=== PATIENT | female | born 1955 | race Caucasian/White ===

== ENCOUNTER 2017-04-28 20:54 | Emergency (ER) | payer OTHER ==
[2017-04-28 21:03] VITALS: BP 155/96
[2017-04-28] MEDS ORDERED: PRAMIPEXOLE DI-HCL 0.5 MG TABLET PO ONE (21:42)
--- NOTE | 2017-04-28 21:44 | ER Document Report ---
ED Extremity Problem, Lower - General Chief Complaint: Leg Pain Stated Complaint: LEG PAIN Time Seen by Provider: 04/28/17 21:42 Mode of Arrival: Ambulatory Information source: Patient TRAVEL OUTSIDE OF THE [place] IN LAST 30 DAYS: No - HPI Patient complains to provider of: Pain Location: Leg Occurred: This afternoon Onset/Duration: Gradual Quality of pain: Achy Severity: Moderate Pain Level: 3 Recent injury: No Exacerbated by: Nothing Relieved by: Nothing Notes: Patient is a 61-year-old female with a history of restless leg syndrome who is visiting from [place] for the weekend, she unfortunately forgot to bring her Mirapex with her which usually keeps her restless leg syndrome under control, she will be here until Monday and is requesting enough medication to last her until then, she denies any injury or trauma, no fevers, no calf cramping or tenderness, no chest pain or shortness of breath, symptoms are typical of her restless leg syndrome - Related Data Allergies/Adverse Reactions: No Known Allergies Allergy (Unverified 04/28/17 21:46) Past Medical History - General Information source: Patient - Social History Smoking Status: Unknown if Ever Smoked Family History: Reviewed & Not Pertinent Review of Systems - Review of Systems Constitutional: No symptoms reported EENT: No symptoms reported Cardiovascular: No symptoms reported Respiratory: No symptoms reported Gastrointestinal: No symptoms reported Genitourinary: No symptoms reported Female Genitourinary: No symptoms reported Musculoskeletal: See HPI Skin: No symptoms reported Hematologic/Lymphatic: No symptoms reported Neurological/Psychological: No symptoms reported -: Yes All other systems reviewed and negative Physical Exam - Vital signs Vitals: Temp Pulse Resp BP Pulse Ox 98.5 F 86 16 155/96 H 97 04/28/17 21:00 04/28/17 21:00 04/28/17 21:00 04/28/17 21:00 04/28/17 21:00 - Notes Notes: - General General appearance: Appears well, Alert In distress: None - HEENT Head: Normocephalic, Atraumatic Eyes: Normal Conjunctiva: Normal Extraocular movements intact: Yes Eyelashes: Normal Pupils: PERRL - Respiratory Respiratory status: No respiratory distress - Cardiovascular Rhythm: Regular - Abdominal Inspection: Normal - Back Back: Normal - Extremities General upper extremity: Normal inspection General lower extremity: Normal inspection - Neurological Neuro grossly intact: Yes Orientation: AAOx4 Sean Coma Scale Eye Opening: Spontaneous Sean Coma Scale Verbal: Oriented Sean Coma Scale Motor: Obeys Commands [place] Coma Scale Total: 15 - Psychological Associated symptoms: Normal affect, Normal mood - Skin Skin Temperature: Warm Skin Moisture: Dry Skin Color: Normal Course - Re-evaluation Re-evalutation: 04/28/17 22:06 Patient was given a prescription for 9 Mirapex tablets for use over the weekend , she will be returning to [place] on Monday, she was advised to follow-up with her provider upon return for any additional concerns, patient acknowledges understanding and agreement with this plan - Vital Signs Vital signs: Temp Pulse Resp BP Pulse Ox 98.5 F 86 16 155/96 H 97 04/28/17 21:00 04/28/17 21:00 04/28/17 21:00 04/28/17 21:00 04/28/17 21:00 Discharge - Discharge Clinical Impression: Restless leg syndrome Condition: Stable Disposition: HOME, SELF-CARE Instructions: Leg Pain Nonspecific ([facility]) Additional Instructions: Follow up with your primary care provider in one to 2 days. Return to the emergency room immediately if symptoms worsen or any additional concerns. Prescriptions: Pramipexole Di-HCl [Mirapex 0.25 Mg Tablet] 0.25 mg PO BID #9 tablet
== END 2017-04-28 21:58 | disposition home or self-care (01) ==
LOC: ER 20:54
DX: G25.81 Restless legs syndrome (principal); M79.606 Pain in leg, unspecified
CPT/HCPCS: 99283; J3490